=== PATIENT | male | born 1995 | race African-American/Black ===

== ENCOUNTER → 2017-02-17 | Outpatient (CLI) | payer BC, OTHER ==
--- NOTE | 2017-02-17 16:42 | DIAGNOSTIC IMAGING REPORT ---
MRI OF THE LEFT KNEE CLINICAL HISTORY: Left knee pain. Twisting injury. Clinical concern for ACL tear. COMPARISON STUDY: No priors. TECHNIQUE: MRI of the left knee was performed utilizing proton density, T1, and T2-weighted sequences in the axial, sagittal, coronal planes. IV contrast was not administered for this examination. Note that interpretation is suboptimal without plain film correlate. FINDINGS: Menisci: The medial and lateral menisci are intact. Ligaments: The anterior and posterior cruciate ligaments are intact. The medial and lateral collateral ligaments are within normal limits. Extensor mechanism: The extensor mechanism is intact. Hoffa's fat pad is normal in appearance. There is mild nonspecific edema within the suprapatellar fat pad. Articular cartilage and bone: There is significant marrow edema seen throughout the patella. There is moderate to severe chondromalacia patella, with greater than 50% cartilage loss and full-thickness fissuring at the patellar apex. There is subchondral geode information. There is also greater than 50% thinning of the cartilage along the lateral patellar facet with full-thickness fissuring. The cartilage of the femoral trochlea appears maintained. The articular cartilage is intact and well maintained in the medial and lateral compartments. Normal marrow signal is preserved in the distal femur and the proximal tibia. Joint effusion: None Soft tissues: There is mild prepatellar soft tissue edema. The musculature surrounding the knee joint is normal in bulk and signal intensity. IMPRESSION: 1. There is no evidence of ligamentous or meniscal injury in the left knee. Specifically, the ACL appears intact. 2. 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 There is associated marrow edema and degenerative cyst/geode formation. 3. There is significant marrow edema throughout the patella. No definite fracture is seen. If there is clinical concern for fracture then radiographic correlation is recommended. 4. There is nonspecific edema within the suprapatellar fat pad. This is nonspecific and could be seen in the setting of the quadriceps fat pad impingement syndrome. Clinical correlation will be required. Electronically signed by: Ignacio Forrest M.D. 02/17/2017 4:41 PM Dictated Date/Time: 02/17/2017 4:32 PM
== END | disposition home or self-care (01) ==
LOC: C.MRIBC 15:15
PROVIDERS: ATTEND Family Medicine
DX: S83.502A Sprain of unspecified cruciate ligament of left knee, initial encounter (principal); X58.XXXA Exposure to other specified factors, initial encounter; M22.42 Chondromalacia patellae, left knee